=== PATIENT | female | born 1995 | race Caucasian/White ===

== ENCOUNTER 2022-05-21 11:34 | Outpatient (CLI) | payer MEDICAID, SELFPAY ==
[2022-05-21 12:08] LABS: Clue Cells No Clue Cells Seen (None Seen); Trichomonas No Trichomonas Seen (None Seen); Yeast Yeast Seen (None Seen)
== END 2022-05-21 11:35 | disposition home or self-care (01) ==
PROVIDERS: PCP Family Medicine; Visit Provider Obstetrics & Gynecology
DX: N94.2 Vaginismus (principal); G52.2 Disorders of vagus nerve; N39.0 Urinary tract infection, site not specified
CPT/HCPCS: 87086; 87210; 87491; 87591